=== PATIENT | female | born 1970 | race African-American/Black ===

== ENCOUNTER 2017-12-01 09:20 | Emergency (ER) | payer OTHER ==
[~2017-12-01] VITALS: Ht 165.1 cm; Wt 88.2 kg
[2017-12-01] MEDS ORDERED: KETOROLAC 30 MG/1 ML ONE (09:55)
[2017-12-01] MEDS ORDERED: ONDANSETRON ODT 4 MG ONE (09:55)
[2017-12-01] MEDS ORDERED: KETOROLAC 60 MG/2 ML IV ONE (10:00)
[2017-12-01] MEDS ORDERED: SODIUM CHLORIDE 0.9% 1,000ML IVBOLUS ONE (10:00)
[2017-12-01] MEDS ORDERED: SODIUM CHLORIDE FLUSH 10ML SYR IVF ONE (10:00)
[2017-12-01] MEDS ORDERED: ONDANSETRON ODT 4 MG PO ONE (10:00)
[2017-12-01 10:09] LABS: BASOPHILS # (AUTO) 0.03 x10^3/uL (0-0.1); BASOPHILS % (AUTO) 0 % (0-1); EOSINOPHILS % (AUTO) 0 % (1-7); LYMPHOCYTES # (AUTO) 1.02 x10^3/uL (1-3.4); LYMPHOCYTES % (AUTO) 7 % (22-44); MD NO; MEAN CORPUSCULAR HEMOGLOBIN 22.3 pg (27.0-34.8); MEAN CORPUSCULAR HGB CONC 31.9 g/dL (32.4-35.8); MEAN CORPUSCULAR VOLUME 69.9 fL (80-100); MONOCYTES # (AUTO) 0.82 x10^3/uL (0.2-0.8); MONOCYTES % (AUTO) 5 % (2-9); NEUTROPHILS # (AUTO) 13.67 x10^3/uL (1.8-6.8); NEUTROPHILS % (AUTO) 88 % (42-75); PLATELET COUNT 271 x10^3/uL (130-400); RED BLOOD COUNT 5.93 x10^6/uL (3.82-5.3); RED CELL DISTRIBUTION WIDTH 14.3 % (9.6-15.2)
[2017-12-01 10:21] LABS: ANION GAP 8 mmol/L (5-15); CALCIUM 8.7 mg/dL (8.5-10.1); CHLORIDE 107 mmol/L (98-107); CREATININE 0.86 mg/dL (0.55-1.02)
[2017-12-01 10:22] LABS: ALBUMIN 3.8 g/dL (3.4-5.0)
[2017-12-01 11:13] LABS: MICROSCOPIC INDICATED
[2017-12-01 11:23] LABS: CULTURE INDICATED? NO
[2017-12-01 11:45] VITALS: BP 127/84
== END 2017-12-01 12:02 | disposition home or self-care (01) ==
LOC: ED 10:22
DX: K52.9 Noninfective gastroenteritis and colitis, unspecified (principal); B34.9 Viral infection, unspecified; D72.829 Elevated white blood cell count, unspecified
CPT/HCPCS: 36415; 80048; 81001; 82040; 84703; 85025; 87081; 87147; 87880; 96361; 96374; 99284; J1885; J7030; Q0162

== ENCOUNTER → 2020-12-17 | Outpatient (CLI) | payer OTHER ==
[~2020-12-17] MED LIST: ASCO100018 PO; FESO4TAB PO; LISI5TAB7 PO; SERT50TA PO
[2020-12-17 10:30] LABS: ALBUMIN 3.5 g/dL (3.4-5.0); ANION GAP 6 mmol/L (5-15); CALCIUM 9.1 mg/dL (8.5-10.1); CHLORIDE 114 mmol/L (98-107)
[2020-12-17 10:33] LABS: ALANINE AMINOTRANSFERASE 22 U/L (12-78); ALKALINE PHOSPHATASE 70 U/L (45-117); BILIRUBIN,TOTAL 0.4 mg/dL (0.2-1.0); CREATININE 0.75 mg/dL (0.55-1.02); TOTAL PROTEIN 7.3 g/dL (6.4-8.2)
== END | disposition home or self-care (01) ==
LOC: STAR 08:56
PROVIDERS: ATTEND Otolaryngology
DX: Z01.812 Encounter for preprocedural laboratory examination (principal); Z20.822 Contact with and (suspected) exposure to COVID-19
CPT/HCPCS: 36415; 80053; U0003; U0005

== ENCOUNTER 2020-12-20 10:34 | Day surgery (SDC) | payer OTHER ==
[~2020-12-20] VITALS: Ht 165.1 cm; Wt 87.5 kg
[2020-12-20] MEDS ORDERED: LIDOCAINE/PF 1%-EPI 1:200K, 30 ML ONE (10:51)
[2020-12-20 10:53] VITALS: BP 147/84
[2020-12-20] MEDS ORDERED: CHLORHEXIDINE 15 ML UDC PO ONE (11:00)
[2020-12-20] MEDS ORDERED: LACTATED RINGERS 1,000 ML IV SCH (11:00)
[2020-12-20 11:16] LABS: HCG UR SG 1.029 (1.003-1.030)
[2020-12-20] MEDS ORDERED: HYDROmorphone 1 MG/ML, 1ML INJ ONE (12:30)
[2020-12-20] MEDS ORDERED: MIDAZOLAM 1 MG/ML, 2ML ONE (12:31)
[2020-12-20] MEDS ORDERED: FENTANYL PF 100 MCG/2ML ONE (12:31)
[2020-12-20] MEDS ORDERED: METHYLENE BLUE 50 MG/10 ML AMP ONE (12:38)
[2020-12-20] MEDS ORDERED: PHENYLEPHRINE 10 MG/ML ONE (13:46)
[2020-12-20] MEDS ORDERED: DEXAMETHASONE 4 MG/ML, 1ML ONE (13:46)
[2020-12-20] MEDS ORDERED: SUCCINYLCHOLINE 20 MG/ML, 10ML ONE (13:46)
[2020-12-20] MEDS ORDERED: ONDANSETRON 2MG/ML, 2ML ONE (13:46)
[2020-12-20] MEDS ORDERED: CEFAZOLIN 1,000 MG ONE (13:46)
[2020-12-20] MEDS ORDERED: ROCURONIUM 10 MG/ML,10ML ONE (13:46)
[2020-12-20] MEDS ORDERED: EPHEDRINE 50 MG/ML, 1ML ONE (13:46)
[2020-12-20] MEDS ORDERED: PROPOFOL 10 MG/ML, 20ML ONE (13:46)
[2020-12-20] MEDS ORDERED: ACETAMINOPHEN 325 MG TABLET PO PRN (14:00)
[2020-12-20] MEDS ORDERED: ONDANSETRON 2MG/ML, 2ML IVPush PRN (14:00)
[2020-12-20] MEDS ORDERED: LABETALOL 5MG/ML, 20ML IV PRN (14:00)
[2020-12-20] MEDS ORDERED: MEPERIDINE/PF 25MG/0.5ML IVPush PRN (14:00)
[2020-12-20] MEDS ORDERED: PROMETHAZINE 25 MG/ML, 1ML IVPush PRN (14:00)
[2020-12-20] MEDS ORDERED: DIPHENHYDRAMINE 50 MG/ML, 1ML IVPush PRN (14:00)
[2020-12-20] MEDS ORDERED: METOPROLOL 1 MG/ML, 5ML IV PRN (14:00)
[2020-12-20] MEDS ORDERED: HYDROmorphone 1 MG/ML, 1ML INJ IVPush PRN (14:00)
[2020-12-20] MEDS ORDERED: EPHEDRINE 50 MG/ML, 1ML IVPush PRN (14:00)
[2020-12-20] MEDS ORDERED: METOCLOPRAMIDE 5 MG/ML, 2ML IVPush PRN (14:00)
[2020-12-20] MEDS ORDERED: OXYcodone 5 MG/5 ML ORAL.SOL UDC PO PRN (14:00)
[2020-12-20] MEDS ORDERED: DIAZEPAM 5 MG/ML, 2ML IVPush PRN (14:00)
[2020-12-20] MEDS ORDERED: HALOPERIDOL 5 MG/ML IV PRN (14:00)
[2020-12-20] MEDS ORDERED: FENTANYL PF 100 MCG/2ML IV PRN (14:00)
[2020-12-20] MEDS ORDERED: hydrALAzine 20 MG/ML, 1ML IV PRN (14:00)
== END 2020-12-20 17:30 | disposition home or self-care (01) ==
LOC: OUT 10:34
PROVIDERS: ATTEND Otolaryngology
DX: H90.A22 Sensorineural hearing loss, unilateral, left ear, with restricted hearing on the contralateral side (principal); D33.3 Benign neoplasm of cranial nerves; I10 Essential (primary) hypertension; J45.909 Unspecified asthma, uncomplicated; F32.9 Major depressive disorder, single episode, unspecified; Z79.899 Other long term (current) drug therapy
CPT/HCPCS: 69714; 81025; J0330; J0690; J1100; J1170; J2250; J2370; J2405; J2704; J3010; J7120; L8690; Q9968